=== PATIENT | male | born 1965 | race Two or more races ===

== ENCOUNTER 2019-08-23 20:39 | Emergency (ER) | payer MEDICARE, MEDICAID ==
[~2019-08-23] VITALS: Ht 180.3 cm; Wt 113.4 kg
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
[2019-08-23 20:50] VITALS: BP 109/69
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
[2019-08-23 21:00] VITALS: BP 109/69
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
== END 2019-08-23 21:00 | disposition short-term general hospital (02) ==
LOC: EDBD 20:39 → EMR 20:46
DX: S11.91XA Laceration without foreign body of unspecified part of neck, initial encounter (principal); R45.851 Suicidal ideations; W26.9XXA Contact with unspecified sharp object(s), initial encounter; Y92.9 Unspecified place or not applicable; Z91.5 Personal history of self-harm
CPT/HCPCS: 99291